=== PATIENT | male | born 1990 | race African-American/Black ===

== ENCOUNTER 2016-10-11 09:53 | Emergency (ER) | payer MEDICAID ==
[~2016-10-11] VITALS: Ht 185.4 cm; Wt 76.2 kg
[2016-10-11 10:52] VITALS: BP 124/64
== END 2016-10-11 11:08 | disposition home or self-care (01) ==
LOC: ER 09:58
DX: J02.9 Acute pharyngitis, unspecified (principal); J20.9 Acute bronchitis, unspecified

== ENCOUNTER 2016-10-24 12:12 | Emergency (ER) | payer MEDICAID ==
[~2016-10-24] VITALS: Ht 185.4 cm; Wt 76.7 kg
[2016-10-24 12:43] VITALS: BP 130/79
== END 2016-10-24 13:14 | disposition home or self-care (01) ==
LOC: ER 12:13
DX: J02.9 Acute pharyngitis, unspecified (principal)